=== PATIENT | female | born 1980 | race Two or more races ===

== ENCOUNTER 2021-07-31 06:32 | Inpatient (IN) ==
[2021-07-31] MEDS ORDERED: D5 1/2 NS 1L W PITOCIN 20 UNITS/L 20 UNITS/1,000 ML BAG IV ONE (06:44)
[2021-07-31] MEDS ORDERED: PITOCIN ONE (06:44)
[2021-07-31] MEDS ORDERED: D5LR 1L W PITOCIN 10 UNITS/L 10 UNITS/1,000 ML BAG IV ONE (06:44)
[2021-07-31] MEDS ORDERED: BETADINE SOLN ONE (06:44)
[2021-07-31] MEDS ORDERED: D5 1/2 NS 1000 ML 1,000 ML IV ONE (06:44)
[2021-07-31] MEDS ORDERED: MORPHINE SULFATE INJ 2 MG INJ IVP PRN (07:44)
[2021-07-31] MEDS ORDERED: PHENERGAN INJ 25 MG IM PRN ×2 (07:44→13:07)
[2021-07-31] MEDS ORDERED: REGLAN INJ 10 MG VIAL IVP PRN (07:44)
[2021-07-31] MEDS ORDERED: PITOCIN IVP ONE (07:44)
[2021-07-31] MEDS ORDERED: D5LR 1L W PITOCIN 10 UNITS/L 10 UNITS/1,000 ML BAG IV PRN (07:44)
[2021-07-31] MEDS ORDERED: STADOL INJ IVP PRN (07:46)
[2021-07-31] MEDS ORDERED: D5 1/2 NS 1000 ML 1,000 ML IV SCH (08:00)
[2021-07-31] MEDS ORDERED: LR 1000 ML IV 1,000 ML IV ONE (08:14)
[2021-07-31] MEDS ORDERED: FENTANYL VIAL INJ 100 mcg ONE ×2 (08:14→08:15)
[2021-07-31] MEDS ORDERED: NAROPIN EPIDURAL 0.2% 100 ML ONE (08:15)
[2021-07-31] MEDS ORDERED: EPHEDRINE SULFATE INJ ONE (10:51)
[2021-07-31] MEDS ORDERED: NS 1000 ML 1,000 ML ONE (10:51)
[2021-07-31] MEDS ORDERED: MOTRIN TAB 800 MG PO PRN (13:07)
[2021-07-31] MEDS ORDERED: D5 1/2 NS 1000 ML 1,000 ML with PITOCIN 20 UNITS IV SCH ×2 (14:00)
[2021-07-31] MEDS ORDERED: AMBIEN PO PRN (16:08)
[2021-07-31] MEDS ORDERED: MILK OF MAGNESIA PO PRN (16:08)
[2021-07-31] MEDS ORDERED: DERMOPLAST PAIN RELIEF SPRAY TOP PRN (16:08)
[2021-07-31] MEDS ORDERED: KEPPRA TAB 500 MG PO SCH (21:00)
[2021-07-31] MEDS: MOTRIN TAB 800 MG PO PRN (22:35)
[2021-08-01 05:30] LABS: HEMATOCRIT 31.2 % (36.0-47.0); HEMOGLOBIN 10.4 g/dL (12.0-16.0)
[2021-08-01] MEDS: MOTRIN TAB 800 MG PO PRN (06:20)
--- NOTE | 2021-08-01 08:25 | NOTE.PROOB ---
progress Note OB- Subjective Data Subjective: No complaints, decreased lochia. Tolerating regular diet. No N/V. Ambulating well. No dysuria. Objective Data Result Diagrams: 08/01/21 03:45 Objective Data: CV= RRR no MRG Lungs=CTA Bilaterally Abd=(+) BS, soft, NTND, Fundus firm/NT/ at 3 cm below umbilicus. Ext=no edema, NT, no cords Plan (1) Vaginal delivery: Plan: ready for d/c (2) Advanced maternal age (AMA), 40 years or greater: (3) Gestational diabetes mellitus: (4) Chronic hypertension affecting :
[2021-08-01] MEDS ORDERED: PRENATAL PLUS PO SCH (09:00)
[2021-08-01 12:14] VITALS: BP 135/75
== END 2021-08-01 14:50 | disposition home or self-care (01) | DRG 806 ==
LOC: LD 06:32 → MED/SURG 16:53
PROVIDERS: ADMIT Obstetrics & Gynecology; ATTEND Obstetrics & Gynecology
DX: Z37.0 Single live birth; O24.410 Gestational diabetes mellitus in pregnancy, diet controlled; O10.913 Unspecified pre-existing hypertension complicating pregnancy, third trimester; Z3A.37 37 weeks gestation of pregnancy